=== PATIENT | male | born 1940 | race Caucasian/White ===

== ENCOUNTER → 2018-06-14 08:25 | Outpatient (CLI) | payer OTHER | END | disposition home or self-care (01) | LOC: SONOGRAMA 08:25 | DX: E04.2 Nontoxic multinodular goiter (principal) ==

== ENCOUNTER 2021-05-03 09:07 | Outpatient (CLI) | payer OTHER | END 2021-05-03 10:00 | disposition home or self-care (01) | LOC: TOM 09:07 | PROVIDERS: ATTEND Urology | DX: R97.20 Elevated prostate specific antigen [PSA] (principal); N40.1 Benign prostatic hyperplasia with lower urinary tract symptoms; N39.41 Urge incontinence; D35.02 Benign neoplasm of left adrenal gland | CPT/HCPCS: 74170; Q9965 ==